=== PATIENT | female | born 1985 | race Caucasian/White ===

== ENCOUNTER → 2025-05-05 12:45 | Outpatient (CLI) | payer OTHER, SELFPAY ==
--- NOTE | 2025-05-05 12:45 | DI.US.S_ITS ---
PROCEDURE: US PELVIC COMPLETE INDICATIONS: Menometrorrhagia, severe dysmenorrhea TECHNIQUE: Real-time scanning was performed of the pelvic organs, with image documentation. Additional endovaginal scanning was necessary due to incomplete visualization of the adnexal and endometrial structures by transabdominal scanning. COMPARISON: None. FINDINGS: Uterus: 9.6 x 5 x 6.7 cm. The endometrium measures 12 mm, upper limit of normal. Small posterior intramural fibroid measures 1.1 x 0.9 cm. Ovaries: Right ovary is nonenlarged at 7 mL. Left ovary is nonenlarged at 5 mL. No significant adnexal cystic or solid lesion. Other: No pathologic free abdominal or pelvic fluid. IMPRESSION: Small intramural fibroid. No significant pelvic abnormality otherwise on ultrasound Dictated by: Mick Starr M.D. on 05/05/2025 at 13:29 Approved by: Mick Starr M.D. on 05/05/2025 at 13:30
== END ==
LOC: US 12:45
PROVIDERS: PCP Family Medicine; Referring Provider Obstetrics & Gynecology; Visit Provider Obstetrics & Gynecology
DX: N92.1 Excessive and frequent menstruation with irregular cycle (principal); N94.6 Dysmenorrhea, unspecified; D25.1 Intramural leiomyoma of uterus
CPT/HCPCS: 76856